=== PATIENT | female | born 1985 | race Two or more races ===

== ENCOUNTER 2017-10-13 07:33 | Emergency (ER) | payer OTHER ==
[~2017-10-13] VITALS: Ht 160 cm; Wt 72.7 kg
[2017-10-13 07:50] VITALS: BP 121/81
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
--- NOTE | 2017-10-13 09:00 | NUR ---
crutch training given.
--- NOTE | 2017-10-13 09:30 | NUR ---
pt awaiting disc request from radiology.
[2017-10-13 09:37] VITALS: BP 122/79
--- NOTE | 2017-10-13 09:37 | NUR ---
Patient discharged with v/s stable. Written and verbal after care instructions given and explained. Patient alert, oriented and verbalized understanding of instructions. Ambulatory with steady gait. All questions addressed prior to discharge. ID band removed. Patient advised to follow up with PMD. Rx of motrin 800mg/tab given. Patient educated on indication of medication including possible reaction and side effects. Opportunity to ask questions provided and answered.
== END 2017-10-13 09:37 | disposition home or self-care (01) ==
LOC: MED 07:33
DX: S93.401A Sprain of unspecified ligament of right ankle, initial encounter (principal); X58.XXXA Exposure to other specified factors, initial encounter; Y93.89 Activity, other specified; Y92.89 Other specified places as the place of occurrence of the external cause; Y99.8 Other external cause status
CPT/HCPCS: 73610; 73630; 99284

== ENCOUNTER 2024-03-02 06:55 | Emergency (ER) | payer OTHER ==
[~2024-03-02] VITALS: Ht 162.6 cm; Wt 77.1 kg
[2024-03-02 07:00] VITALS: BP 122/75; PULSE 100; RESP 16; TEMP 97.4; O2SAT 98
[2024-03-02 07:15] VITALS: BP 122/75; PULSE 100; RESP 16; TEMP 97.4; O2SAT 98
== END 2024-03-02 07:25 | disposition home or self-care (01) ==
LOC: MED 06:55
DX: S51.811A Laceration without foreign body of right forearm, initial encounter (principal); Z79.899 Other long term (current) drug therapy; W26.8XXA Contact with other sharp object(s), not elsewhere classified, initial encounter; Y93.89 Activity, other specified; Y92.89 Other specified places as the place of occurrence of the external cause; Y99.8 Other external cause status
CPT/HCPCS: 90471; 90715; 99283